=== PATIENT | female | born 1965 | race Caucasian/White ===

== ENCOUNTER 2017-03-14 05:54 | Day surgery (SDC) | payer OTHER ==
[~2017-03-14] VITALS: Ht 162.6 cm; Wt 128.0 kg
[~2017-03-14 05:54] MED LIST: ALBU90OI INH; AMIT10 PO; BENZ100A PO; BENZ2 PO; BUPR150ER PO; Bactrim Ds Tab1 EACH PO; Bactroban22 GM TOP; Benadryl 50 mg50 MG PO; CENTRUM SILVER1 EAC2 PO; CEPH500 PO; CRANBERRY250 MG PO; CYCL10 PO; DICL25ER PO; DOXE50 PO; DULO60; DULO60 PO; Desyrel50 MG; Diclofenac Sodi50 MG PO; ERYT1OIN BOTHEYES; FLUT.05NI; FURO40 PO; Flomax0.4 MG PO; GABA300 PO; GABA400 PO; HYDACE5325 PO; HYDPAM25 PO; Hydrochlorothia25 MG PO; Keflex500 MG PO; LASIX; Lyrica75 MG PO; MONT10T PO; MULVITMINF PO; Micro-K10 MEQ PO; NAPR500 PO; Norco 5-325 Ta1 EACH PO; OXYACE5T PO; POTCHL10ER PO; PRAZOSIN; PRED20 PO; PREG150 PO; PROCODE120 PO; PROM25 PO; Prednisone20 MG PO; Prilosec Otc20 MG PO; Prilosec20 MG PO; Prozac20 MG; SERT50 PO; TRAM50 PO; TROKENDI XR200 MG PO; Ultram50 MG PO; VENLAFAXINE; Venlafaxine HC225 MG PO; Zithromax250 MG PO
[2017-05-30] MEDS ORDERED: Flovent 110 MCG12 GM INH (14:12)
[2017-05-30] MEDS ORDERED: DICL25ER PO (14:13)
== END 2017-03-14 12:01 | disposition home or self-care (01) ==
LOC: MHTC 05:54
PROC: 4A023N7 Measurement of Cardiac Sampling and Pressure, Left Heart, Percutaneous Approach (ICD-10-PCS; principal; 2017-03-14)
PROC: B211YZZ Fluoroscopy of Multiple Coronary Arteries using Other Contrast (ICD-10-PCS; principal; 2017-03-14)
DX: I25.10 Atherosclerotic heart disease of native coronary artery without angina pectoris (principal); R94.39 Abnormal result of other cardiovascular function study; I73.9 Peripheral vascular disease, unspecified; E66.9 Obesity, unspecified; F17.210 Nicotine dependence, cigarettes, uncomplicated; E78.00 Pure hypercholesterolemia, unspecified; J98.4 Other disorders of lung
CPT/HCPCS: 93454; 99152; 99153; C1769; C1894; J1644; J2250; J3010; J7030; Q9967

== ENCOUNTER 2017-04-03 10:51 | Day surgery (SDC) | payer OTHER ==
[~2017-04-03] VITALS: Ht 165.1 cm; Wt 126.5 kg
[2017-04-04 05:36] LABS: BASOPHILS ABSOLUTE AUTO 0.04 K/mm3 (0.00-0.23); BASOPHILS PERCENT AUTO 0 % (0-2); EOSINOPHILS ABSOLUTE AUTO 0.02 K/mm3 (0.00-0.68); EOSINOPHILS PERCENT AUTO 0 % (0-6); Hematocrit 35.6 % (33.0-51.0); Hemoglobin 11.5 g/dL (11.5-16.0); IMMATURE GRAN ABSOLUTE AUTO 0.05 K/mm3 (0.00-0.10); IMMATURE GRAN PERCENT AUTO 0 % (0-1); LYMPHOCYTES ABSOLUTE AUTO 1.99 K/mm3 (0.84-5.20); LYMPHOCYTES PERCENT AUTO 17 % (21-46); MONOCYTES ABSOLUTE AUTO 1.34 K/mm3 (0.16-1.47); MONOCYTES PERCENT AUTO 11 % (4-13); Mean Corpuscular HGB Conc 32.3 g/dL (31.5-36.5); Mean Corpuscular Volume 93 fL (80-100); NEUTROPHILS ABSOLUTE AUTO 8.46 K/mm3 (1.96-9.15); NEUTROPHILS PERCENT AUTO 71 % (41-73); Platelet Count 264 K/mm3 (150-400); RDW Coefficient Variation 13.6 % (11.7-14.2); RDW Standard Deviation 46.4 fL (35.1-46.3); Red Blood Cell Count 3.83 M/mm3 (3.80-5.20)
[2017-04-04 06:04] LABS: Anion Gap 9 mmol/L (6-16); Blood Urea Nitrogen 16 mg/dL (8-24); Bun/Creatinine Ratio 18.1 (12.0-20.0); CO2, Blood 25 mmol/L (21-32); Calcium, Blood 8.5 mg/dL (8.5-10.1); Chloride, Blood 107 mmol/L (98-108); Creatinine, Blood 0.89 mg/dL (0.40-1.00); Glomerular Filtration Rate >60 (60-); Glucose, Blood 125 mg/dL (70-99); Potassium, Blood 3.6 mmol/L (3.5-5.5); Sodium, Blood 141 mmol/L (136-145)
[2017-04-04] MEDS ORDERED: XARELTO10 MG PO (08:38)
[2017-04-04] MEDS ORDERED: Percocet 5-3251 EACH PO (08:39)
[2017-05-30] MEDS ORDERED: Flovent 110 MCG12 GM INH (14:12)
[2017-05-30] MEDS ORDERED: DICL25ER PO (14:13)
== END 2017-04-04 17:10 | disposition home or self-care (01) ==
LOC: ORSCMMR 10:51 → ORD 13:00 → ORSCMMR 13:00 → SURS 16:17 → ORSCMMR 04-04 17:10
PROVIDERS: Orthopaedic Surgery
PROC: 0SRC0JA Replacement of Right Knee Joint with Synthetic Substitute, Uncemented, Open Approach (ICD-10-PCS; principal; 2017-04-03 13:00)
DX: M17.11 Unilateral primary osteoarthritis, right knee (principal); J44.9 Chronic obstructive pulmonary disease, unspecified; G47.33 Obstructive sleep apnea (adult) (pediatric); Z86.73 Personal history of transient ischemic attack (TIA), and cerebral infarction without residual deficits; E66.01 Morbid (severe) obesity due to excess calories; Z68.42 Body mass index [BMI] 45.0-49.9, adult; Z79.899 Other long term (current) drug therapy
CPT/HCPCS: 36415; 73560-RT; 80048; 85025; 86850; 86900; 86901; 88300; 94760; 94762; 97110; 97116; 97162; 97530; C1776; G8978; G8979; J0171; J0735; J1100; J1170; J1885; J2250; J2405; J2795; J3370; J7120

== ENCOUNTER 2017-06-21 07:11 | Observation (INO) | payer OTHER ==
[~2017-06-21] VITALS: Ht 165.1 cm; Wt 124.3 kg
[~2017-06-21 07:11] MED LIST changes: +Flovent 110 MCG12 GM INH; +Percocet 5-3251 EACH PO; +XARELTO10 MG PO
[2017-06-22 04:51] LABS: BASOPHILS ABSOLUTE AUTO 0.02 K/mm3 (0.00-0.23); BASOPHILS PERCENT AUTO 0 % (0-2); EOSINOPHILS ABSOLUTE AUTO 0.04 K/mm3 (0.00-0.68); EOSINOPHILS PERCENT AUTO 0 % (0-6); Hematocrit 36.9 % (33.0-51.0); Hemoglobin 11.9 g/dL (11.5-16.0); IMMATURE GRAN ABSOLUTE AUTO 0.03 K/mm3 (0.00-0.10); IMMATURE GRAN PERCENT AUTO 0 % (0-1); LYMPHOCYTES PERCENT AUTO 17 % (21-46); MONOCYTES ABSOLUTE AUTO 0.95 K/mm3 (0.16-1.47); MONOCYTES PERCENT AUTO 11 % (4-13); Mean Corpuscular HGB Conc 32.2 g/dL (31.5-36.5); Mean Corpuscular Volume 90 fL (80-100); Mean Platelet Volume 9.2 fL (9.1-12.4); NEUTROPHILS ABSOLUTE AUTO 6.42 K/mm3 (1.96-9.15); NEUTROPHILS PERCENT AUTO 72 % (41-73); Platelet Count 279 K/mm3 (150-400); RDW Coefficient Variation 14.1 % (11.7-14.2); RDW Standard Deviation 46.3 fL (35.1-46.3); White Blood Cell Count 8.96 K/mm3 (4.00-11.30)
[2017-06-22 05:17] LABS: Anion Gap 9 mmol/L (6-16); Blood Urea Nitrogen 12 mg/dL (8-24); CO2, Blood 24 mmol/L (21-32); Calcium, Blood 8.5 mg/dL (8.5-10.1); Chloride, Blood 107 mmol/L (98-108); Creatinine, Blood 0.93 mg/dL (0.40-1.00); Glomerular Filtration Rate >60 (60-); Glucose, Blood 123 mg/dL (70-99); Potassium, Blood 3.5 mmol/L (3.5-5.5); Sodium, Blood 140 mmol/L (136-145)
[2017-06-23] MEDS ORDERED: XARELTO1 EACH (12:29)
== END 2017-06-23 12:55 | disposition home or self-care (01) ==
LOC: ORSCMMR 07:11 → SURS 07:12 → ORSCMMR 07:12 → ORD 07:30 → ORSCMMR 09:15 → ORD 10:30 → ORSCMMR 15:08 → SURS 15:08 → ORSCMMR 06-22 15:55 → SURS 06-23 12:55
PROVIDERS: Orthopaedic Surgery
PROC: 0SRD0JZ Replacement of Left Knee Joint with Synthetic Substitute, Open Approach (ICD-10-PCS; principal; 2017-06-21 10:45)
DX: M17.12 Unilateral primary osteoarthritis, left knee (principal); E66.01 Morbid (severe) obesity due to excess calories; F43.10 Post-traumatic stress disorder, unspecified; J44.9 Chronic obstructive pulmonary disease, unspecified; G47.30 Sleep apnea, unspecified; F41.9 Anxiety disorder, unspecified; F32.9 Major depressive disorder, single episode, unspecified; M79.7 Fibromyalgia; Z87.891 Personal history of nicotine dependence; Z79.899 Other long term (current) drug therapy; Z79.1 Long term (current) use of non-steroidal anti-inflammatories (NSAID); Z88.0 Allergy status to penicillin; Z88.8 Allergy status to other drugs, medicaments and biological substances; Z79.2 Long term (current) use of antibiotics; Z86.73 Personal history of transient ischemic attack (TIA), and cerebral infarction without residual deficits
CPT/HCPCS: 36415; 73560-LT; 80048; 83735; 85025; 86850; 86900; 86901; 88300; 97110; 97116; 97161; 97530; C1776; G0378; G8978; G8979; G8980; J0171; J0735; J1885; J2250; J2405; J2795; J3010; J7120; Q0163

== ENCOUNTER → 2017-07-28 | Outpatient (CLI) | payer OTHER ==
[~2017-07-28] MED LIST changes: +XARELTO1 EACH
[2017-07-28 11:59] LABS: Blood, Urine 1+ (Neg); Glucose Qualitative, Urine Neg (Neg); Ketones, Urine Neg (Neg); Leukocyte Esterase, Urine 2+ (Neg); Nitrite, Urine Pos (Neg); Protein, Urine 2+ (Neg); Urobilinogen, Urine 3+ (Normal)
[2017-07-28 12:28] LABS: Appearance, Urine Hazy (Clear); Bilirubin, Urine 2+ (Neg); Color, Urine Orange (P-Yellow)
[2017-07-28 12:29] LABS: Bacteria Few /hpf; Red Blood Cells, Urine 0-2 /hpf (0-2); Squamous Epithelial Cells Few /hpf (Few)
== END | disposition home or self-care (01) ==
LOC: LAB 11:51 → LAB SHORT 11:51
PROVIDERS: Family Medicine
DX: R39.15 Urgency of urination (principal); R30.9 Painful micturition, unspecified
CPT/HCPCS: 81001; 87077; 87086; 87186

== ENCOUNTER 2018-04-18 06:04 | Day surgery (SDC) | payer OTHER ==
[~2018-04-18] VITALS: Ht 162.6 cm; Wt 130.5 kg
--- NOTE | 2018-04-18 06:54 | NUR ---
PATIENT CLEARED OF MRSA, NO ISOLATION NECESSARY.
--- NOTE | 2018-04-18 06:54 | NUR ---
History, Chart, Medications and Allergies reviewed before start of procedure. Patient confirms NPO status and agrees with scheduled surgery. Lungs clear T/O to Auscultation. Patient States Post-Procedure ride home has been arranged. Pre-Op teaching done. Pt verbalizes understanding. Patient reports completing Chlorhexadine shower X2 prior to admission to hospital.
--- NOTE | 2018-04-18 07:09 | NUR ---
INSURANCE MARKETING SPECIALIST REPORT COMPLETED AT BEDSIDE.
== END 2018-04-18 16:00 | disposition home or self-care (01) ==
LOC: ORSCMMR 06:04 → ORD 07:30 → ORSCMMR 16:00
PROVIDERS: Orthopaedic Surgery
PROC: 0LN70ZZ Release Right Hand Tendon, Open Approach (ICD-10-PCS; principal; 2018-04-18 07:30)
DX: M65.311 Trigger thumb, right thumb (principal); Z86.73 Personal history of transient ischemic attack (TIA), and cerebral infarction without residual deficits; M79.7 Fibromyalgia; J44.9 Chronic obstructive pulmonary disease, unspecified; G47.33 Obstructive sleep apnea (adult) (pediatric); F41.9 Anxiety disorder, unspecified; F31.9 Bipolar disorder, unspecified; F17.210 Nicotine dependence, cigarettes, uncomplicated; E66.9 Obesity, unspecified; Z68.42 Body mass index [BMI] 45.0-49.9, adult
CPT/HCPCS: J2250; J3010; J7120

== ENCOUNTER 2018-07-10 10:55 | Day surgery (SDC) | payer OTHER ==
[~2018-07-10] VITALS: Ht 165.1 cm; Wt 276.2 kg
[~2018-07-10 10:55] MED LIST changes: +BLACK COHOSH PO; +LO-DOSE ASPIRIN81 MG PO; +POTCHL20ER PO; +QVAR REDIHALE10.6 G1 INH; +TOPIRAMATE ER200 MG PO
== END 2018-07-10 13:04 | disposition home or self-care (01) ==
LOC: ORSCSDS 10:55
PROVIDERS: Anesthesiology
PROC: B01B1ZZ Fluoroscopy of Spinal Cord using Low Osmolar Contrast (ICD-10-PCS; principal; 2018-07-10 12:30)
PROC: 3E0R33Z Introduction of Anti-inflammatory into Spinal Canal, Percutaneous Approach (ICD-10-PCS; principal; 2018-07-10 12:30)
DX: M54.12 Radiculopathy, cervical region (principal); G47.33 Obstructive sleep apnea (adult) (pediatric); E05.90 Thyrotoxicosis, unspecified without thyrotoxic crisis or storm; E78.00 Pure hypercholesterolemia, unspecified; F17.210 Nicotine dependence, cigarettes, uncomplicated; Z79.899 Other long term (current) drug therapy
CPT/HCPCS: J1040; J2250; J3010; J7120

== ENCOUNTER 2018-09-18 14:57 | Day surgery (SDC) | payer OTHER ==
[~2018-09-18] VITALS: Ht 165.1 cm; Wt 121.5 kg
--- NOTE | 2018-09-18 15:54 | NUR ---
09/18/18 1554 GaboRadha S PT. VERBALIZES PAIN IN HER BILAT SHOULDERS, NECK & DOWN TO HER HANDS. PT. RATING PAIN IN SHOULDERS & NECK "5" & ARMS "6-7". PT. VERBALIZES ARMS FEEL LIKE SHE HAS BEEN WORKING IN THE YARD, YARD WORK. PT. VERBALIZES TINGLING IN HER LEFT HAND.
[2018-09-18] MEDS ORDERED: Pedi-Dri 100,0060 GM (16:08)
[2018-09-18] MEDS ORDERED: Adult Low Dose81 MG (16:09)
[2018-09-18] MEDS ORDERED: Zantac150 MG (16:10)
[2018-09-18] MEDS ORDERED: MANNOSE50 GM (16:10)
[2018-09-18] MEDS ORDERED: CALCIUM 600 +1 EAC7 (16:11)
[2018-09-18] MEDS ORDERED: MIRALAX17 GM (16:11)
[2018-09-18] MEDS ORDERED: Aldactone50 MG (16:13)
--- NOTE | 2018-09-18 16:19 | NUR ---
09/18/18 1619 Radha Ayon PT. VERBALIZES PAIN TO NECK, BILAT SHOULDERS, & TOP OF NECK RATING A "7". PT. DENIES NUMBNESS OR TINGLING TODAY IN PREOP. PT. DOES VERBALIZE THAT AT TIMES SHE DOES GET NUMBNESS & TINGLING IN HER HANDS.
== END 2018-09-18 16:32 | disposition home or self-care (01) ==
LOC: ORSCSDS 14:57
PROVIDERS: Anesthesiology
PROC: 3E0R33Z Introduction of Anti-inflammatory into Spinal Canal, Percutaneous Approach (ICD-10-PCS; principal; 2018-09-18 16:00)
DX: M54.12 Radiculopathy, cervical region (principal); M48.02 Spinal stenosis, cervical region; G47.33 Obstructive sleep apnea (adult) (pediatric); E05.90 Thyrotoxicosis, unspecified without thyrotoxic crisis or storm; F32.9 Major depressive disorder, single episode, unspecified; E78.00 Pure hypercholesterolemia, unspecified; J45.909 Unspecified asthma, uncomplicated; E66.9 Obesity, unspecified; Z68.42 Body mass index [BMI] 45.0-49.9, adult; Z79.899 Other long term (current) drug therapy; F17.210 Nicotine dependence, cigarettes, uncomplicated
CPT/HCPCS: J1040; J2250; J3010; J7120

== ENCOUNTER 2020-04-17 00:04 | Emergency (ER) | payer OTHER ==
[~2020-04-17] VITALS: Ht 165.1 cm; Wt 131.5 kg
[~2020-04-17 00:04] MED LIST changes: +Adult Low Dose81 MG; +Aldactone50 MG; +Aldactone50 MG PO; +CALCIUM 600 +1 EAC7; +DIAZ10 PO; +FAMO20 PO; +LITH300ER PO; +MANNOSE50 GM; +MIRALAX17 GM; +MIRT15 PO; +OMEP20ER PO; +Pedi-Dri 100,0060 GM; +SERT100 PO; +TOPI100 PO; +VITAMIN B-50 C0.4 MG PO; +Zantac150 MG
== END 2020-04-17 01:26 | disposition home or self-care (01) ==
LOC: ER 00:04
DX: M54.5 Low back pain (principal); G89.29 Other chronic pain; F17.210 Nicotine dependence, cigarettes, uncomplicated; Z88.0 Allergy status to penicillin; Z88.5 Allergy status to narcotic agent; Z79.899 Other long term (current) drug therapy
CPT/HCPCS: 96372; 99283-25; J1100; J1885

== ENCOUNTER 2020-08-19 19:24 | Emergency (ER) | payer OTHER ==
[~2020-08-19] VITALS: Ht 165.1 cm; Wt 131.5 kg
[2020-08-19] MEDS ORDERED: CIPHYDOTSU LEFTEAR (21:09)
[2020-08-19] MEDS ORDERED: DOXY100 PO (21:09)
== END 2020-08-19 21:20 | disposition home or self-care (01) ==
LOC: ER 19:24
DX: H60.92 Unspecified otitis externa, left ear (principal); H60.12 Cellulitis of left external ear; Z79.899 Other long term (current) drug therapy
CPT/HCPCS: 99282; A9270

== ENCOUNTER 2024-08-13 05:11 | Inpatient (IN) | payer OTHER ==
[~2024-08-13] VITALS: Ht 165.1 cm; Wt 95.7 kg
[2024-08-13] VITALS (10 sets, daily range): BP systolic 104–133; BP diastolic 69–94
[~2024-08-13 05:11] MED LIST changes: +CIPHYDOTSU LEFTEAR; +DOXY100 PO
[2024-08-13] MEDS ORDERED: Ondansetron HCl 2 MG / ML 2ML Vial IV PRN ×2 (05:35→12:15)
[2024-08-13 05:38] LABS: BASOPHILS ABSOLUTE AUTO 0.06 K/mm3 (0.00-0.23); BASOPHILS PERCENT AUTO 1 % (0-2); EOSINOPHILS ABSOLUTE AUTO 0.09 K/mm3 (0.00-0.68); EOSINOPHILS PERCENT AUTO 1 % (0-6); Hematocrit 44.1 % (33.0-51.0); Hemoglobin 15.1 g/dL (11.5-16.0); IMMATURE GRAN ABSOLUTE AUTO 0.03 K/mm3 (0.00-0.10); IMMATURE GRAN PERCENT AUTO 0 % (0-1); LYMPHOCYTES ABSOLUTE AUTO 2.10 K/mm3 (0.84-5.20); LYMPHOCYTES PERCENT AUTO 21 % (21-46); MONOCYTES ABSOLUTE AUTO 1.01 K/mm3 (0.16-1.47); MONOCYTES PERCENT AUTO 10 % (4-13); Mean Corpuscular HGB Conc 34.2 g/dL (31.5-36.5); Mean Corpuscular Volume 90 fL (80-100); NEUTROPHILS ABSOLUTE AUTO 6.87 K/mm3 (1.96-9.15); NEUTROPHILS PERCENT AUTO 68 % (41-73); NRBC ABSOLUTE 0.00 K/mm3 (0.00-0.02); NRBC Auto 0.0 /100 WBC (0.0-0.2); Platelet Count 319 K/mm3 (150-400); RDW Coefficient Variation 12.8 % (11.7-14.2); RDW Standard Deviation 42.1 fL (35.1-46.3)
[2024-08-13] MEDS ORDERED: NS 1,000 ML IV SCH (05:55)
[2024-08-13] MEDS ORDERED: Ketorolac Tromethamine 30mg Vial IV ONE (05:55)
[2024-08-13] MEDS ORDERED: HYDROmorphone HCl/Pf 1MG SYR IV ONE ×2 (05:55→07:15)
[2024-08-13 06:04] LABS: Alanine Aminotransfer (ALT/SGP 38.0 U/L (12-78); Albumin, Blood 3.6 g/dL (3.4-5.0); Albumin/Globulin Ratio 0.9 (0.8-1.8); Anion Gap 6.0 mmol/L (3-11); Aspartate Aminotrans (AST/SGOT 39.0 U/L (12-37); Bilirubin, Total 0.8 mg/dL (0.1-1.0); Blood Urea Nitrogen 25.0 mg/dL (8-24); CO2, Blood 32.0 mmol/L (21-32); Calcium, Blood 9.5 mg/dL (8.5-10.1); Chloride, Blood 101.0 mmol/L (98-108); Creatinine, Blood 1.06 mg/dL (0.40-1.00); Globulin, Blood 4.0 g/dL (2.2-4.0); Glucose, Blood 118.0 mg/dL (70-99); Potassium, Blood 3.4 mmol/L (3.5-5.5); Sodium, Blood 136.0 mmol/L (136-145); Total Protein, Blood 7.6 g/dL (6.4-8.2)
[2024-08-13] MEDS ORDERED: Piperacillin/Tazobactam Sod 3.375 GM in NS 100 ML IV ONE (08:40)
--- NOTE | 2024-08-13 10:30 | NUR ---
INTO SDS VIA WHEELCHAIR. PT REPORTS 6/10 RUQ PAIN. PT STATES THAT SHE IS ON PAIN MANAGEMENT CONTRACT. PT HAS A NERVE STIMULATOR FOR PAIN. HISTORY AND ALLERGIES REVIEWED. LUNGS CLEAR. SATS >90% ON 2L N/C. PT HAS G[employer] AND WEARS HER CPAP, BUT SHE DOESN'T NORMALLY REQUIRE O2 @ HOME. NPO STATUS CONFIRMED. CHLORHEXIDINE WIPE TO ABDOMEN X 2. PT PHONE AND CLOTHING GIVEN TO YADI-PT SPOUSE. PT GLASSES TAKEN TO PACU.
[2024-08-13] MEDS ORDERED: Bupivacaine 0.5% HCl 5 MG/ML 30MLVIAL ONE (11:21)
[2024-08-13] MEDS ORDERED: CeFAZolin Sodium 2,000 MG in NS 100 ML IV SCH (11:30)
[2024-08-13] MEDS ORDERED: FentaNYL Citrate 50 MCG/ML 2 ML Injection ONE ×2 (11:41→13:24)
[2024-08-13] MEDS ORDERED: Ondansetron HCl 2 MG / ML 2ML Vial ONE (11:47)
[2024-08-13] MEDS ORDERED: Dexamethasone Sod Phos 10 MG/ML 1ML VIAL ONE (11:47)
[2024-08-13] MEDS ORDERED: Ketorolac Tromethamine 30mg Vial ONE (11:48)
[2024-08-13] MEDS ORDERED: HYDROmorphone HCl/Pf 1MG SYR IV PRN (12:05)
[2024-08-13] MEDS ORDERED: FentaNYL Citrate 50 MCG/ML 2 ML Injection IV PRN ×2 (12:05)
[2024-08-13] MEDS ORDERED: ePHEDrine Sulfate 50 MG/ML 1ML Injection IV PRN (12:05)
[2024-08-13] MEDS ORDERED: Morphine Sulfate 4 MG/1 ML Injection IV PRN (12:05)
[2024-08-13] MEDS ORDERED: Metoclopramide HCl 5MG / ML 2ML Vial IV PRN (12:05)
[2024-08-13] MEDS ORDERED: Rocuronium Bromide 10 MG/ML 5ML Injection IV ONE (12:10)
[2024-08-13] MEDS ORDERED: Albuterol 2.5 MG/3 ML VIAL INH PRN (12:10)
[2024-08-13] MEDS ORDERED: Sugammadex Sodium 200 MG/2ML SDV (100 MG/ML) ONE (12:39)
[2024-08-13] MEDS ORDERED: HYDROcodone 5-APAP 325 TAB PO PRN (13:50)
--- NOTE | 2024-08-13 13:53 | NUR ---
POST-OP PATIENT ARRIVES TO UNIT @1340 AOX4, REPORTS NEFTALI PRESSURE IN ABD. LAP SITES X4 WITH STERI STRIPS C/D/I. PATIENT UP TO THE BATHROOM VOIDING. DENIES N/V. VSS. CALL LIGHT IN REACH.
--- NOTE | 2024-08-13 16:24 | NUR ---
DISCHARGE PATIENT IS AOX4, VOIDING, WALKING, TOLERATING PO INTAKE, MEDICATED PER EMAR FOR PAIN. IV TAKEN OUT INTACT. ALL INSTRUCTIONS SIGNED AND HARD PRESCRIPTION GIVEN TO PATIENT. PATIENT WALKS OUT INDEPENDENTLY TO AWAITING VEHICLE.
== END 2024-08-13 16:29 | disposition home or self-care (01) | DRG 419 ==
LOC: ER 05:11 → MEDS 09:54 → SURS 09:54
PROVIDERS: Emergency Medicine; Surgery; ADMIT Internal Medicine
PROC: BF10YZZ Fluoroscopy of Bile Ducts using Other Contrast (ICD-10-PCS; 2024-08-13)
PROC: 0FT44ZZ Resection of Gallbladder, Percutaneous Endoscopic Approach (ICD-10-PCS; principal; 2024-08-13 11:30)
DX: K80.20 Calculus of gallbladder without cholecystitis without obstruction (principal); F31.9 Bipolar disorder, unspecified; K21.9 Gastro-esophageal reflux disease without esophagitis; G47.30 Sleep apnea, unspecified; E66.9 Obesity, unspecified; N18.9 Chronic kidney disease, unspecified; J44.89 Other specified chronic obstructive pulmonary disease; R73.03 Prediabetes; Z96.653 Presence of artificial knee joint, bilateral; Z86.73 Personal history of transient ischemic attack (TIA), and cerebral infarction without residual deficits; Z98.1 Arthrodesis status; Z88.0 Allergy status to penicillin; Z88.5 Allergy status to narcotic agent; Z68.35 Body mass index [BMI] 35.0-35.9, adult
CPT/HCPCS: 74300; 76705; 80053; 83690; 84484; 85025; 96374; 96375; 96376; 99285-25; A9270; J1100; J1171; J1885; J2405; J2543; J2704; J3010; J7030; J7120

== ENCOUNTER → 2024-09-08 | Outpatient (CLI) | payer OTHER | END | disposition home or self-care (01) | LOC: LAB SHORT 13:24 → LAB 13:24 | DX: R39.9 Unspecified symptoms and signs involving the genitourinary system (principal) | CPT/HCPCS: 87077; 87086; 87186 ==

== ENCOUNTER → 2024-11-03 | Outpatient (CLI) | payer OTHER ==
[2024-11-03 20:26] LABS: Creatinine, Urine Random 43.60 mg/dL (27.00-270.00)
[2024-11-03 20:29] LABS: Microalb/Creat Ratio UR, Rand Unable to Calculate mg/g (0.000-30.000); Microalbumin, Random Urine <5.000 mg/L (0.000-20.000)
== END ==
LOC: LAB 18:36 → LAB SHORT 18:36
PROVIDERS: Family Medicine
DX: E11.9 Type 2 diabetes mellitus without complications (principal); R82.90 Unspecified abnormal findings in urine
CPT/HCPCS: 82043; 82570; 87077; 87086; 87186